=== PATIENT | male | born 1940 | race Caucasian/White ===

== ENCOUNTER 2016-11-01 10:34 | Day surgery (SDC) | payer OTHER ==
[2016-10-28 15:45] LABS: HEMATOCRIT 46.7 % (40.0-51.0)
[2016-10-28 16:01] LABS: ASCORBIC ACID (UR NOT ORDER) NEG (NEG); BILIRUBIN, URINE NEGATIVE (NEG); KETONE, URINE NEGATIVE (NEG); LEUKOCYTE ESTERASE(NOT OR NEG (NEG); WBC (NOT ORDERED) (RFLEX) 2 (0-5)
--- NOTE | ~2016-11-01 | OP ---
Record Of Operation [facility] [address] [place]. [address] NAME: ODILIA NEWTON : 40 STATUS : REG [facility] PAT#: [id number] AGE: 76 ADM/REG DATE : 11/01/16 MR#: [id number] REPORT SERV DATE: 11/01/16 DICTATED BY: Gladys BOWDEN DATE: 11/01/16 REPORT STATUS : Draft TRANSCRIBED BY: MODL DATE: 11/01/16 DATE OF PROCEDURE: 11/01/2016 POSTOPERATIVE DIAGNOSIS: Symptomatic 8 mm right renal pelvic calculus. POSTOPERATIVE DIAGNOSIS: Symptomatic 8 mm right renal pelvic calculus. PROCEDURE: Right ESWL. SURGEON: Gladys Bowden M.D. ANESTHESIA: MAC. COMPLICATIONS: Ectopy. DRAINS: None. BRIEF HISTORY: Mr. Newton is a 76-year-old white male, with recurrent urolithiasis, who has had several right renal pelvic stone. The case has becomes symptomatic, we have treated him successfully with lithotripsy in the past. I have offered him percutaneous stone removal and ureteroscopy to try to remove all these calculi, but he has been reluctant. We discussed risks of bleeding, infection, anesthesia, need for retreatment, endoscopy, etc. There were no unanswered questions. DESCRIPTION OF PROCEDURE: Under excellent MAC anesthesia, the patient was placed supine on the [employer] lithotripsy unit #2. The largest and most medially placed stone about 8 mm in size was first treated and then appeared to fragment at least partially. We moved to treat some of the more laterally positioned stones as well. The patient tolerated the procedure well except for some ectopy which required gating and his rate of about 70. A total of 3000 shocks at power level of 7.0 were delivered and the case was terminated. I plan to discharge Mr. Newton as an outpatient with the following instructions. DISCHARGE INSTRUCTIONS: 1. Home today. 2. Strain all urine and save any fragments. 3. Hydrocodone 5/325 one to two p.o. q.4 hours p.r.n. pain, #20. 4. Tamsulosin 0.4 mg one p.o. daily, 30 minutes after the same meal, #14 with three refills. 5. Follow up office in two weeks with a KUB, sooner p.r.n. ALYSHA/TOMMY Gladys Bowden M.D. Record Of Operation [place] [id number] [place]. [address] NAME: ODILIA NEWTON : 40 STATUS : REG [facility] PAT#: [id number] AGE: 76 ADM/REG DATE : 11/01/16 MR#: [id number] REPORT SERV DATE: 11/01/16 DICTATED BY: Gladys BOWDEN DATE: 11/01/16 REPORT STATUS : Draft TRANSCRIBED BY: TOMMY DATE: 11/01/16 / [id number] CC: Emerson De Anda KATRINA V.
[~2016-11-01 10:34] MED LIST: DIOV80 PO; HALF81 PO; LIPITOR20 PO; LORTAB 5 PO; MUCINEX D1 TA1 OR; NIASPAN500 PO; PCET PO; PRAVACHOL40 MG PO; PROAIR HFA INH; RANITIDINE300 MG PO; SPIRIVA INH; T PO; THERAPEUTIC PO; ZANTAC 150 PO; ZANTAC150 MG PO
== END 2016-11-01 15:58 | disposition home or self-care (01) ==
LOC: SDC 10:34
PROC: 0TF3XZZ Fragmentation in Right Kidney Pelvis, External Approach (ICD-10-PCS; principal; 2016-11-01 13:00)
DX: N20.0 Calculus of kidney (principal); N23 Unspecified renal colic; I10 Essential (primary) hypertension; M19.90 Unspecified osteoarthritis, unspecified site; K21.9 Gastro-esophageal reflux disease without esophagitis; J44.9 Chronic obstructive pulmonary disease, unspecified; F17.210 Nicotine dependence, cigarettes, uncomplicated; Z98.890 Other specified postprocedural states; Z88.5 Allergy status to narcotic agent; Z86.010 Personal history of colon polyps
CPT/HCPCS: 50590; 74000; 81001; 85014; 85018; 93005; A9270-GY; J2250; J2370; J2405; J3010